=== PATIENT | male | born 1925 | race Caucasian/White ===

== ENCOUNTER 2016-07-27 11:31 | Outpatient (CLI) | payer MEDICARE, BC ==
[2016-07-27 12:17] LABS: Anion Gap 15 mmol/L (10-20); BUN (Urea Nitrogen) 78 mg/dL (8.4-25.7); Calc. Creatinine Clearance 0 mL/min (70-130); Calcium 9.6 mg/dL (7.8-10.44); Carbon Dioxide 20 mmol/L (23-31); Chloride 110 mmol/L (98-107); Estimated GFR-MDRD 7
== END 2016-07-27 11:32 | disposition home or self-care (01) ==
LOC: BURLAB 11:31
PROVIDERS: ATTEND Internal Medicine Nephrology
DX: N18.5 Chronic kidney disease, stage 5 (principal); R60.0 Localized edema
CPT/HCPCS: 36415; 80048; 83970